=== PATIENT | male | born 1995 | race African-American/Black ===

== ENCOUNTER 2024-11-09 19:07 | Emergency (ER) | payer BC, MEDICAID, SELFPAY ==
--- NOTE | ~2024-11-09 | XR_ITS ---
HISTORY: RT 1ST toe pain- no injury COMPARISON: None TECHNIQUE: 2 views of the left great toe were performed FINDINGS: No acute or subacute fracture. Lobulated ossific densities are identified within the plantar surface of the distal interphalangeal j oint space of the great toe, possibly the source of patient's discomfort. Joint spaces are otherwise preserved and alignment is maintained. Soft tissues are otherwise unremarkable without radiopaque foreign body. Age-appropriate mineralization. IMPRESSION: Findings along the plantar surface of the distal interphalangeal joint space, likely deg enerative in origin, as detailed above. Reviewed, dictated and finalized at location A. IMPRESSION: Findings along the plantar surface of the distal interphalangeal j oint space, likely degenerative in origin, as detailed above.
--- NOTE | 2024-11-09 19:09 | ED.LOWEXIN ---
HPI - Extremity Injury (Lower) General Chief Complaint: Extremity Injury, Lower Stated Complaint: Left Foot Toe Pain Time Seen by Provider: 11/09/24 19:09 Source: patient Mode of arrival: ambulatory Limitations: no limitations History of Present Illness HPI Narrative: Stefan is a 29-year-old male patient presenting to the clinic today with complaints of left great toe pain x5 days. He reports over the last 24 hours his pain got worse. He denies any known injury but had went to [facility] 3 days ago and his symptoms worsened. Has pain and swelling to the left great toe. No history of gout. Has taken ibuprofen with some relief. Related Data Allergies Allergy/AdvReac Type Severity Reaction Status Date / Time No Known Allergies Allergy Verified 11/09/24 19:34 Review of Systems Review of Systems: Pertinent positives per HPI. Patient denies any fever, chills, rash, headache, visual changes, dizziness, cough, runny nose, sore throat, shortness of breath, chest pain, palpitations, nausea, vomiting, diarrhea, constipation, abdominal pain, or any urinary issues. PMFSH Comments At the time of my signature, I reviewed and agree with the nursing past medical, surgical, social, and family history. There is no relevant family history pertinent to the patient complaint. Exam Narrative: General: Well-developed, well nourished, in no apparent distress Head: Normocephalic, atraumatic. Cardio: Regular rate and rhythm, s1 and s2 normal, no murmur appreciated. Resp: Clear to auscultation bilaterally, no rhonchi, rales, wheezing or rubs. Musculoskeletal: No deformity, no wounds or lesions, mild swelling to the left great toe, tender to palpation over the IP joint of the left great toe, grossly normal range of motion, muscle strength strong and equal, peripheral pulse strong, no edema, no cyanosis, normal gait and station Course Course Emergency Course: Portions of this record may have been created with voice recognition software. Level of Care: Express Care Visit Vital Signs Vital signs: Vital Signs Temperature 37.1 C 11/09/24 19:18 Pulse Rate 67 11/09/24 19:18 Respiratory Rate 16 11/09/24 19:18 Blood Pressure 125/82 11/09/24 19:18 Pulse Oximetry 100 11/09/24 19:18 Oxygen Delivery Room Air 11/09/24 19:18 Temperature 37.1 C 11/09/24 19:18 Pulse Rate 67 11/09/24 19:18 Respiratory Rate 16 11/09/24 19:18 Blood Pressure 125/82 11/09/24 19:18 Pulse Oximetry 100 11/09/24 19:18 Oxygen Delivery Room Air 11/09/24 19:18 Vital signs reviewed MDM - Extremity Injury (Lower) MDM Narrative Medical decision making narrative: At the time of visit patient is resting comfortably on the exam table. Patient appears to be nontoxic. Diagnostics: X-ray of the left great toe was performed and shows some degenerative changes in the plantar aspect of the IP joint Plan: I suspect patient has osteo arthritis versus gout. Prescription for Medrol Dosepak was sent to pharmacy Supportive measures were discussed with the patient and they voiced understanding discharge instructions and agrees to treatment plan. Return precautions reviewed Differential Diagnosis Differential diagnosis: Likely fracture of toe and other (Gout, arthritis, toe strain, tendinitis) Imaging Data Radiologist's impression: ITS Impressions Toe X-Ray 11/09/24 20:12 IMPRESSION: Findings along the plantar surface of the distal interphalangeal joint space, likely degenerative in origin, as detailed above. Discharge Plan Discharge Clinical Impression: Great toe pain Qualifiers: Laterality: left Qualified Code(s): M79.675 - Pain in left toe(s) Patient Disposition: Home Condition: Stable Instructions: Antibiotic Form, Swollen Joint (ED) Additional Instructions: X-ray of the left great toe shows possibly some arthritis-degenerative verses gout Rest, ice, and elevate Tylenol/motrin for pain as discussed. Take Medrol Dosepak as prescribed Gradually bear weight Follow up with your PCP if symptoms persist more than 1 week. Patient Language: Jordanian Prescriptions: New methylprednisolone [Medrol ([facility])] 4 mg tablets,dose pack See Rx Instructions PO .COMPLEX Qty: 21 0RF Rx Instructions: orally per package directions Follow-up/Referrals: UNKNOWN,DOCTOR [Non-Staff] - Time of Disposition: 20:27 Quality NIHSS Nursing Documentation ED NIHSS nursing documentation: reviewed/agree
[2024-11-09 19:18] VITALS: BP 125/82; PULSE 67; RESP 16; TEMP 37.1; O2SAT 100
== END 2024-11-09 20:28 | disposition home or self-care (01) ==
PROVIDERS: Emergency Provider Nurse Practitioner Family
DX: M79.675 Pain in left toe(s) (principal)
CPT/HCPCS: 73660; 99203; G0463